=== PATIENT | female | born 1985 ===

== ENCOUNTER 2017-01-04 17:40 | Emergency (ER) | payer SELFPAY ==
[~2017-01-04] VITALS: Ht 167.6 cm; Wt 69.0 kg
[2017-01-04 17:43] VITALS: Ht 167.6 cm; Wt 69.0 kg
== END 2017-01-04 18:48 | disposition left against medical advice (07) ==
LOC: FTE 17:40
DX: Z53.21 Procedure and treatment not carried out due to patient leaving prior to being seen by health care provider (principal)